=== PATIENT | female | born 1965 | race African-American/Black ===

== ENCOUNTER 2018-10-08 10:38 | Inpatient (IN) | payer OTHER ==
[2018-10-08] MEDS ORDERED: LIDOCAINE HCL/PF 2% SDV 5ML VIAL ONE (12:50)
[2018-10-08] MEDS ORDERED: PROPOFOL 20 ML ONE ×17 (12:50→15:35)
[2018-10-08] MEDS ORDERED: fentaNYL CITRATE 250 MCG/5 ML VIAL ONE ×2 (12:50)
[2018-10-08] MEDS ORDERED: MIDAZOLAM HCL 2 MG/2 ML SINGLE DOSE VIAL ONE ×2 (12:51)
[2018-10-08] MEDS ORDERED: ROCURONIUM BROMIDE 50 MG/5 ML VIAL ONE (12:51)
[2018-10-08] MEDS ORDERED: SUCCINYLCHOLINE CHLORIDE 200 MG/10 ML VIAL ONE (12:51)
--- NOTE | 2018-10-08 13:31 | PN ---
Progress Note (short form) - Note Progress Note: 52F s/p C5-C6 discectomy; C5, C6 partial corpectomies; C5-C6 anterior cervical decompression and instrumented fusion POD #0. -Admit to ICU x 24 hrs. for airway observation; OK to discharge home or downgrade to floor 10/09/2017 if airway stable. -Maintain head of bed 45-60 degrees. 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 -DVT PPx: -Mechanical only: MERVAT's, SCD's. -Post-op Ancef x 2 doses. -f/u AM labs. -Incentive spirometry. -PT/OT/Rehab, OOB. -WBAT B/L UE & LE. -d/c Cheney catheter at midnight; f/u TOV (8 hours max). -Keep dressing clean & dry. -No heavy lifting, bending or twisting. -Advance diet as tolerated. -B/L UE & LE NV checks. -Care per ICU & primary medical hospitalist teams. -Discharge planning: ok to discharge home 10/09/2017 if airway stable and pain well controlled; f/u [facility] [place] office Monday10/19/2017; call for appointment; . Devin Resendez MD (Orthopaedic Surgery).
[2018-10-08] MEDS ORDERED: ceFAZolin 2 GRAM PREMIX BAG IVPB ONE (13:35)
[2018-10-08] MEDS ORDERED: ceFAZolin SODIUM 1 GM VIAL ONE (13:52)
[2018-10-08] MEDS ORDERED: DEXAMETHASONE SOD PHOSPHATE 4 MG/1 ML VIAL ONE (14:31)
[2018-10-08] MEDS ORDERED: THROMBIN (BOVINE) 5,000 UNIT VIAL TP ONE (14:52)
--- NOTE | 2018-10-08 16:34 | OP ---
Operative Note - Note: Operative Date: 10/08/18 Pre-Operative Diagnosis: 1. C5-C6 intervertebral disc disorder. 2. Cervical radiculopathy. 3. Cervical myelopathy with neurogenic claudication. 4. Kyphosis Operation: 1. C5-C6 discectomy. 2. C5, C6 partial corpectomies. 3. C5-C6 anterior arthrodesis. 4. C5-C6 anterior instrumentation. 5. Bone autograft. 6. Bone allograft. 7. Intra-operative biplanar fluoroscopy. 8. Intra- operative neural monitoring Implants: Cage: Size #10, RTI Fortilink. Plate: 16mm Precision Spine Slimplicity Plate. 4 x 12mm screws Post-Operative Diagnosis: Same as Pre-op Surgeon: Devin Resendez Photography Spotter: Rafael Resendez Anesthesiologist/TRUCK SHOP SUPERVISOR: Burke Luke Anesthesia: General Specimens Removed: C5-C6 disc Estimated Blood Loss (mls): 25 Fluid Volume Replaced (mls): 1,000 Operative Report Dictated: Yes
[2018-10-08] MEDS ORDERED: ONDANSETRON 4 MG/2 ML VIAL IVPUSH PRN (16:35)
[2018-10-08] MEDS ORDERED: oxyCODONE HCL 5 MG TABLET PO PRN ×2 (16:35)
[2018-10-08] MEDS ORDERED: LACTATED RINGERS SOLUTION 1,000 ML IV SCH ×2 (16:45→17:00)
[2018-10-08] MEDS ORDERED: ACETAMINOPHEN INJECTION 100 ML IVPB ONE (17:08)
[2018-10-08] MEDS ORDERED: HYDROmorphone *PCA* 10MG/50ML DISP.SYRIN PCA ONE (17:09)
[2018-10-08] MEDS: HYDROmorphone *PCA* 10MG/50ML DISP.SYRIN PCA SCH (17:30)
[2018-10-08] MEDS: ACETAMINOPHEN 1000 MG/100 ML VIAL (NON FORMULARY) IVPB SCH (17:35)
--- NOTE | 2018-10-08 17:53 | CONSULT ---
Consult Consult Specialty:: CCM Referred by:: Dr. Resendez Reason for Consultation:: Airway watch - History of Present Illness Chief Complaint: s/p spinal surgery History of Present Illness: 52F with history of HTN, HLD, DM, C5-C6 intervertebral disc disorder, Cervical radiculopathy, Cervical myelopathy with neurogenic claudication, Kyphosis POD#0 s/p C5-C6 discectomy, C5, C6 partial corpectomies, C5-C6 anterior arthrodesis , C5-C6 anterior instrumentation, Bone autograft, Bone allograft, Intra- operative biplanar fluoroscopy, and Intra-operative neural monitoring. Procedure was without complications. Patient presents to the ICU for postoperative airway watch due to extent of surgery. Patient was lethargic in the PACU during evaluation so review of symptoms could not be done. - History Source History Provided By: Medical Record - Past Medical History Cardio/Vascular: Yes: HTN, Hyperlipdemia ...LMP Comment: 2014 Musculoskeletal: Yes: Other (chronic cervical back pain) Endocrine: Yes: Diabetes Mellitus - Alcohol/Substance Use Hx Alcohol Use: No - Smoking History Smoking history: Never smoked Home Medications - Allergies Allergies/Adverse Reactions: Allergies Allergy/AdvReac Type Severity Reaction Status Date / Time lisinopril Allergy Severe Swelling Verified 10/04/18 08:44 - Home Medications Home Medications: Ambulatory Orders Atorvastatin Ca [Lipitor] 20 mg PO DAILY 10/04/18 Losartan Potassium 100 mg PO DAILY 10/04/18 Metformin HCl [Metformin HCl ER] 500 mg PO BID 10/04/18 Family Disease History - Family Disease History Family History: Unable to Obtain Review of Systems Unable to obtain ROS, reason: lethargic - Review of Systems Gastrointestinal: reports: Nausea Physical Exam Vital Signs: Vital Signs Temperature 98.7 F 10/08/18 11:48 Pulse Rate 67 10/08/18 11:48 Respiratory Rate 20 10/08/18 11:48 Blood Pressure 128/83 10/08/18 11:48 O2 Sat by Pulse Oximetry (%) 99 10/08/18 11:48 Constitutional: Yes: No Distress, Other (lethargic) Eyes: Yes: Conjunctiva Clear, EOM Intact, PERRL HENT: Yes: Atraumatic, Normocephalic Neck: Yes: Supple, Trachea Midline Cardiovascular: Yes: Regular Rate and Rhythm Respiratory: Yes: Regular, CTA Bilaterally Gastrointestinal: Yes: Normal Bowel Sounds, Soft. No: Tenderness Edema: No Wound/Incision: Yes: Clean/Dry Neurological: Yes: Cran Nerves II-XII Intact, Other (able to move all extremities) ...Motor Strength: WNL Assessment/Plan 52F with history of HTN, HLD, DM, C5-C6 intervertebral disc disorder, Cervical radiculopathy, Cervical myelopathy with neurogenic claudication, Kyphosis POD#0 s/p C5-C6 discectomy, C5, C6 partial corpectomies, C5-C6 anterior arthrodesis , C5-C6 anterior instrumentation, Bone autograft, Bone allograft, Intra- operative biplanar fluoroscopy, and Intra-operative neural monitoring. 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 Incentive spirometry. PT consult OOB as tolerated WBAT B/L UE & LE per spine surgery Keep dressing clean & dry No heavy lifting, bending or twisting Advance diet as tolerated B/L UE & LE NV checks Case discussed with attending Dr. Toscano aware
[2018-10-08] MEDS ORDERED: LOSARTAN POTASSIUM 50 MG TABLET (FP) PO ONE (20:15)
[2018-10-08] MEDS ORDERED: ceFAZolin 2 GRAM PREMIX BAG IVPB SCH (21:00)
--- NOTE | 2018-10-08 21:00 | OP ---
DATE OF OPERATION: 10/08/2018 SURGEON: Devin Resendez MD VICE PRESIDENT BIOSTATISTICS: Rafael Resendez MD PREOPERATIVE DIAGNOSIS: 1. C5-C6 intervertebral disk disorder with associated A. Myelopathy. B. Radiculopathy. 2. Cervical spinal stenosis with neurogenic claudication. 3. Cervical kyphosis. 4. Segmental instability. 5. Disk osteophyte complex C5-C6. POSTOPERATIVE DIAGNOSIS: 1. C5-C6 intervertebral disk disorder with associated A. Myelopathy. B. Radiculopathy. 2. Cervical spinal stenosis with neurogenic claudication. 3. Cervical kyphosis. 4. Segmental instability. 5. Disk osteophyte complex C5-C6. SURGICAL PROCEDURE: 1. C5-C6 discectomy. 2. C5, C6 partial corpectomies. 3. C5-C6 anterior arthrodesis. 4. Insertion of biomechanical device C5-C6. 5. C5-C6 anterior instrumentation. 6. Bone autograft. 7. Bone allograft. 8. Intraoperative biplanar fluoroscopy. 9. Intraoperative neural monitoring. ANESTHESIOLOGIST: Burke Luke MD ANESTHESIA: General endotracheal tube anesthesia. POSITION: Supine. INCISION: Right oblique anterior at level of cricothyroid interval. IMPLANTS: Cage size # 10 RTI Fortilink. Plate: 16-mm Precision Spine Slimplicity plate. Screws 4 x 12 mm. ESTIMATED BLOOD LOSS: 25cc. INTRAVENOUS FLUID: Crystalloid, 1L. SPECIMENS: C5-C6 disc. DRAINS: None. COMPLICATIONS: None. URINE OUTPUT: See anesthesia record. BACTERIOLOGY: None. CLOSURE: 2-0 Vicryl and 3-0 Biosyn absorbable suture. INDICATIONS: The patient is a 52-year-old female who was indicated for anterior cervical decompression and instrumented fusion to prevent the progression of already worsening neurological decline. The patient was identified in the holding area by her arm band. A long discussion was held with the patient regarding the risks, benefits, and alternatives of the above-named procedure. The risks include, but are not limited to: Pain, bleeding, infection, damage to surrounding structures (including nerves, blood vessels, skin, ligaments, tendons, and bone), dysphagia, dysphonia, nerve palsy, wound complications, pseudarthrosis, failure of fusion, failure of hardware/implants/reduction, need for further surgery, blood clots, myocardial infarction, pulmonary embolism, cerebrovascular event, anesthesia complications, neurological injury, loss of function, and . Benefits as mentioned above. Alternatives include no surgery. All questions were answered. The patient understood and agreed to the procedure. Informed consent was obtained, witnessed, and verified. The patient was taken to the operating room after being seen by the anesthesia and nursing staff. PROCEDURE: The patient was brought into the operating room, placed on the OR table and secured with a safety strap. Consent and the operative site was again verified with the patient and nursing and anesthesia staff. Anesthesia was then administered without complications including antibiotics and TXA. A time-out was then done led by , the attending surgeon. The patient was positioned in the supine position with arms tucked and placed under gentle traction using tape over her shoulders. All bony prominences were very well padded. A bump was placed beneath the scapulae to facilitate extension of the patients neck. The cricothyroid interval was palpated, and a deep neck crease in the lines of Lenin at this level was targeted for incision. A C-arm fluoroscopy unit was positioned perpendicularly to the table and maintained at the level of the head, except when needed. Intra-operative neural monitoring revealed no change between pre- and post- positional SSEP & MEP baseline readings. The operative site was then prepped and draped in the standard sterile fashion using betadine prep and scrub, wiped off with alcohol, and Duraprep applied. Pre-operative imaging was available for intra-operative evaluation. Time-out was again done, and the case began. An oblique anterior incision was made on the right side of the patients neck in the lines of Lenin in standard fashion. Dissection was carried through the investing layer of fascia and finger palpation was used to create a plane lateral to the strap muscles between the carotid sheath and the viscera. Next, the esophagus and trachea were visualized as was the carotid sheath. Hand-held retractors were used to retract these structures safely out of the way, allowing direct access to the anterior cervical spine. The prevertebral fascia overlying the anterior cervical spine was then split using peanut swabs. An 18-gauge spinal needle was bent and used to localize the C5-C6 disc space under fluoroscopy. This helped us target the indicated surgical level. Next, the medial borders of the Longus Coli musculature were gently released over the anterolateral borders of the vertebral bodies and disc spaces using monopolar electrocautery. A self-retaining retractor system was used with the teeth of the blades retracting the belly of the longus coli muscles, and with the retractors themselves safely retracting the carotid sheath laterally and viscera medially. A 12mm Browning pin was then placed into the center of the vertebral bodies of C5 and C6. The Browning pin placement was confirmed via fluorscopy. A Browning pin distractor system was applied with no distraction at this stage. Additionally, the distractor barrels served as superior and inferior soft tissue retractors. The microscope was then introduced. The anterior osteophyte overlying the C5- C6 interspace was resected using a rongeur. Using monopolar electrocautery, the annulus of the C5-C6 disc was incised. The disc was morselized using a curette and excised using a pituitary rongeur. Next, a 40mm rough salo-tipped navjot was used to perform partial corpectomies of the caudal C5 vertebral body and the cephalad C6 vertebral body. The resection of most remaining bone, and the posterior longitudinal ligament (PLL) , was achieved utilizing Kerrison rongeur upcuts. A small, angled, ball-tipped probe was utilized to ensure that all PLL complex was free from adhesion to the theca prior to excision. There was no evidence of OPLL. The ball-tipped probe was also used to ensure that the bilateral C5-C6 neuroforaminae were patent. Our decompression of the cervical spine was successfully achieved. At this point, gentle distraction was applied to the Browning pin distractor. Next, trial implants were placed into the defect space and a size 10 RTI Fortilink cage was then selected to fit the distracted space. The cage was filled with a combination of autologous bone shavings and demineralized bone matrix putty allograft. The cage was then gently tapped into position. This completed the anterior arthrodesis. Browning pin distraction was released, allowing ligamentotaxis to provide a snug interference fit of the cage. This was ensured by using a cage-mejia. A 16- mm Precision Spine Slimplicity plate was utilized with 2 proximal and 2 distal screws measuring 12 mm to provide solid fixation. This, too, was demonstrated with a plate-mejia once all instrumentation was satisfactorily seated. The screws were then locked using the plate-screw locking mechanism. Fluoroscopic images in the AP and lateral plane showed implants to be in good position and with good overall alignment of the cervical spine. Copious irrigation was performed, hemostasis was assured, and the wound was closed primarily using 2-0 Vicryl and 3-0 Biosyn sutures. A sterile compressive dressing was applied. Sponge and needle counts were correct at the end of the case, and I, the attending surgeon, was present and scrubbed throughout the case. The patient was then extubated by the anesthesia staff without incident or complications and was then transferred to the recovery room in stable condition having tolerated the procedure well. OVERALL COMMENTS: Large amount of anterior osteophyte at C5-C6. Intraoperative improvement in both MEP and SSEP signaling following the anterior spinal cord decompression. Overall, case went very well. MD HARRY Delgado/[id number] MTDD
[2018-10-08] MEDS: CEFAZOLIN 2 GM/D5W 2 GM/50 ML ML IVPB SCH (21:57)
[2018-10-08] MEDS: BENZOCAINE/MENTH/CETYLPYRD CL 1 EACH LOZENGE MM PRN (22:00)
[2018-10-09] MEDS: ACETAMINOPHEN 1000 MG/100 ML VIAL (NON FORMULARY) IVPB SCH ×2 (00:06→08:59)
[2018-10-09] MEDS: diphenhydrAMINE HCL 25 MG CAPSULE (FP) PO PRN ×2 (00:17→10:58)
[2018-10-09] MEDS ORDERED: PT OWN MED DRAWER 7, Y5N ONE ×4 (04:56→21:16)
[2018-10-09] MEDS: CEFAZOLIN 2 GM/D5W 2 GM/50 ML ML IVPB SCH (05:41)
[2018-10-09 05:51] LABS: HEMATOCRIT 35.9 % (32.4-45.2); HEMOGLOBIN 11.7 GM/dL (10.7-15.3); MCH 29.2 pg (25.7-33.7); MCHC 32.6 g/dl (32.0-36.0); MEAN CELL VOLUME 89.6 fl (80-96); MEAN PLT VOLUME 8.3 fl (7.5-11.1); PLATELET COUNT 277 K/MM3 (134-434); RDW 13.4 % (11.6-15.6); WHITE BLOOD COUNT 10.4 K/mm3 (4.0-10.0)
[2018-10-09 06:18] LABS: ANION GAP 8 MMOL/L (8-16); BLOOD UREA NITROGEN 10 mg/dL (7-18); CALCIUM 8.9 mg/dL (8.5-10.1); CHLORIDE 106 mmol/L (98-107); CO2 27 mmol/L (21-32); GLUCOSE,RANDOM 134 mg/dL (74-106); POTASSIUM 4.1 mmol/L (3.5-5.1); SODIUM 141 mmol/L (136-145)
--- NOTE | 2018-10-09 07:02 | PN ---
Physical Exam: SUBJECTIVE: Patient seen and examined. Reports pain moderately well controlled. Endorses diffuse itching w/ dilaudid despite benadryl use. Denies N/V. Endorses flatus denies BM. OBJECTIVE: Vital Signs Period Temp Pulse Resp BP Sys/Cabello Pulse Ox Last 24 Hr 98.4 F-98.9 F 67-89 10-21 16-157/76-100 99-100 GENERAL: Awake, alert, and fully oriented, in no acute distress HEAD: No signs of trauma, normocephalic, atraumatic EYES: PERRLA, EOMI, sclera anicteric, conjunctiva clear ENT: Hearing grossly normal, nares patent, oropharynx clear without exudates. Moist mucosa NECK: Supple, post-operative dressing in place LUNGS: No distress, speaks full sentences, clear to auscultation bilaterally HEART: Regular rate and rhythm, normal S1 and S2, no murmurs appreciated, peripheral pulses normal and equal bilaterally ABDOMEN: Soft, nontender, normoactive bowel sounds. No guarding, no rebound EXTREMITIES : Normal inspection, Normal range of motion, no edema. No clubbing or cyanosis NEUROLOGICAL: Cranial nerves II through XII grossly intact. Normal speech, no focal sensorimotor deficits SKIN: Warm, Dry ASSESSMENT/PLAN: The pt is a 52F s/p C5-C6 discectomy; C5, C6 partial corpectomies; C5-C6 anterior cervical decompression and instrumented fusion on 10/08/2018 w/ Dr. Resendez. 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 -WBAT B/L UE & LE. -No heavy lifting, bending or twisting Dispo -Patient no longer requires ICU level of care, plan to transfer to the floor today -Discharge planning: ok to discharge home 10/09/2017 if airway stable and pain well controlled; f/u [facility] [place] office Monday10/19/2017; call for appointment; . Visit type - Emergency Visit Emergency Visit: Yes ED Registration Date: 10/08/18 Care time: The patient presented to the Emergency Department on the above date and was hospitalized for further evaluation of their emergent condition. - New Patient This patient is new to me today: Yes Date on this admission: 10/09/18 - Critical Care Critical Care patient: Yes Total Critical Care Time (in minutes): 35 Critical Care Statement: The care of this patient involved high complexity decision making to prevent further life threatening deterioration of the patient 's condition and/or to evaluate & treat vital organ system(s) failure or risk of failure.
[2018-10-09] MEDS ORDERED: LOSARTAN POTASSIUM 50 MG TABLET (FP) PO SCH (10:00)
[2018-10-09] MEDS: traMADol HCL 50 MG TABLET PO PRN ×2 (10:58→17:27)
--- NOTE | 2018-10-09 11:53 | PN ---
Teaching Attending Note Name of Resident: Aashish Desir ATTENDING PHYSICIAN STATEMENT I saw and evaluated the patient. I reviewed the resident's note and discussed the case with the resident. I agree with the resident's findings and plan as documented. SUBJECTIVE: Pt seen and examined in the ICU. Pain relatively controlled. Some upper lip swelling this AM but without shortness of breath. Some dysphagia from throat discomfort. OBJECTIVE: Vital Signs Period Temp Pulse Resp BP Sys/Cabello Pulse Ox Last 24 Hr 98.1 F-98.9 F 66-106 10-21 16-157/76-100 100-100 Intake & Output 10/06/18 10/07/18 10/08/18 10/09/18 23:59 23:59 23:59 23:59 Intake Total 1350 1900 Output Total 1975 800 Balance -625 1100 Weight 79.651 kg Gen: NAD at rest Heart: RRR Lung: decreased breath sounds at the bases Abd: soft, nontender Ext: no edema CBC, BMP 10/09/18 05:15 10/09/18 05:15 Active Medications Atorvastatin Calcium (Lipitor -) 20 mg PO HS [facility]UNA Benzocaine/Menthol (Cepacol Lozenge -) 1 each MM PRN PRN PRN Reason: SORE THROAT Last Admin: 10/08/18 22:00 Dose: 1 each Diphenhydramine HCl (Benadryl -) 50 mg PO Q6H PRN PRN Reason: FOR ITCHING Last Admin: 10/09/18 10:58 Dose: 50 mg Fentanyl (Sublimaze Injection -) 50 mcg IVPUSH [id number] PRN PRN Reason: PAIN-PACU ORDER X 4 DOSES ONLY Last Admin: 10/08/18 17:10 Dose: 50 mcg Hydromorphone HCl (Dilaudid Seed Laboratory Assistant -) 0 mg SHUTTLER CAR SHUTTLER CAR [facility]; Protocol Stop: 10/15/18 16:50 Last Admin: 10/08/18 17:30 Dose: 10 mg Lactated Ringer's (Lactated Ringers Solution) 1,000 mls @ 125 mls/hr IV ASDIR [facility] Last Admin: 10/08/18 16:45 Dose: 125 mls Losartan Potassium (Cozaar -) 100 mg PO DAILY [facility] Last Admin: 10/09/18 10:08 Dose: 100 mg Metformin HCl (Glucophage Xr -) 500 mg PO BIDAC [facility] Last Admin: 10/09/18 07:12 Dose: 500 mg Ondansetron HCl (Zofran Injection) 4 mg IVPUSH Q6H PRN PRN Reason: NAUSEA AND/OR VOMITING Last Admin: 10/08/18 17:15 Dose: 4 mg Oxycodone HCl (Roxicodone -) 5 mg PO Q4H PRN PRN Reason: PAIN LEVEL 6-10 Oxycodone HCl (Roxicodone -) 10 mg PO Q4H PRN PRN Reason: PAIN LEVEL 7 - 10 Tramadol HCl (Ultram -) 50 mg PO Q6H PRN PRN Reason: PAIN LEVEL 4 - 6 Last Admin: 10/09/18 10:58 Dose: 50 mg ASSESSMENT AND PLAN: Cervical Radiculopathy/Myelopathy with Neurogenic Claudication s/p C5-C6 Discectomy/Anterior Instrumentation HTN Hyperlipidemia DM Angioedema from ?Opiates - start benadryl - decadron - pain control - incentive spirometry - bowel regimen - jarvis d/c'd - OOB - PO as tolerated - DVT prophylaxis - can monitor on floor
[2018-10-09] MEDS ORDERED: hydrOXYzine HCL 25 MG TABLET (FP) PO ONE (11:56)
[2018-10-09] MEDS: BENZOCAINE/MENTH/CETYLPYRD CL 1 EACH LOZENGE MM PRN ×3 (14:37→22:10)
--- NOTE | 2018-10-09 14:43 | PN ---
Progress Note (short form) - Note Progress Note: Anesthesia POD#1 S/P ACDF under GA with MATCHER vss,lip swelling noticed,no injury,pain is under control. Dilaudid MATCHER is discontinued. No nausea/vomiting. Amanda Martins MD.
--- NOTE | 2018-10-09 17:55 | PN ---
Progress Note, Physician Chief Complaint: pt reports upper lip swelling since this morning. There has been no progression of symptoms. She remains stable for transfer to step down floor. History of Present Illness: POD #1 s/p C5-6 discectomy, C5-6 partial corpectomies, C5-6 anterior athrodesis - Current Medication List Current Medications: Active Medications Acetaminophen (Tylenol -) 650 mg PO Q6H PRN PRN Reason: PAIN Atorvastatin Calcium (Lipitor -) 20 mg PO HS [facility] Benzocaine/Menthol (Cepacol Lozenge -) 1 each MM PRN PRN PRN Reason: SORE THROAT Last Admin: 10/09/18 17:32 Dose: 1 each Diphenhydramine HCl (Benadryl -) 50 mg PO Q6H PRN PRN Reason: FOR ITCHING Last Admin: 10/09/18 10:58 Dose: 50 mg Losartan Potassium (Cozaar -) 100 mg PO DAILY [facility] Last Admin: 10/09/18 10:08 Dose: 100 mg Metformin HCl (Glucophage Xr -) 500 mg PO BIDAC [facility] Last Admin: 10/09/18 17:21 Dose: 500 mg Ondansetron HCl (Zofran Injection) 4 mg IVPUSH Q6H PRN PRN Reason: NAUSEA AND/OR VOMITING Last Admin: 10/08/18 17:15 Dose: 4 mg Oxycodone HCl (Roxicodone -) 5 mg PO Q4H PRN PRN Reason: PAIN LEVEL 6-10 Oxycodone HCl (Roxicodone -) 10 mg PO Q4H PRN PRN Reason: PAIN LEVEL 7 - 10 Tramadol HCl (Ultram -) 50 mg PO Q6H PRN PRN Reason: PAIN LEVEL 4 - 6 Last Admin: 10/09/18 17:27 Dose: 50 mg - Objective Vital Signs: Vital Signs Temperature 98.0 F 10/09/18 14:00 Pulse Rate 74 10/09/18 16:00 Respiratory Rate 18 10/09/18 16:00 Blood Pressure 131/76 10/09/18 16:00 O2 Sat by Pulse Oximetry (%) 100 10/09/18 09:00 Constitutional: Yes: Well Nourished, No Distress, Calm Eyes: Yes: WNL, Conjunctiva Clear, EOM Intact, PERRL HENT: Yes: Atraumatic, Normocephalic Neck: Yes: Supple, Trachea Midline, Tenderness (right sided, clean dry dressing) Cardiovascular: Yes: Regular Rate and Rhythm Respiratory: Yes: Regular, CTA Bilaterally Gastrointestinal: Yes: Normal Bowel Sounds, Soft ...Rectal Exam: Yes: Deferred Extremities: Yes: WNL Edema: No Peripheral Pulses WNL: Yes Peripheral Pulses: Left Radial: 2+, Right Radial: 2+, Left Doralis Pedis: 2+, Right Dorsalis Pedis: 2+ Integumentary: Yes: WNL Wound/Incision: Yes: Clean/Dry Neurological: Yes: Oriented ...Motor Strength: LUE, LLE, RUE, RLE Psychiatric: Yes: Alert, Oriented Labs: CBC, BMP 10/09/18 05:15 10/09/18 05:15 Problem List - Problems (1) S/P discectomy Assessment/Plan: OOB to chair Ambulate as tolerated Continue with PT Code(s): Z98.890 - OTHER SPECIFIED POSTPROCEDURAL STATES (2) Pain Assessment/Plan: Tylenol and tramadol for pain control Pt with upper lip swelling, avoid excessive oxycodone use Code(s): R52 - PAIN, UNSPECIFIED (3) HTN (hypertension) Assessment/Plan: losartan 100mg daily cardiac diet Code(s): I10 - ESSENTIAL (PRIMARY) HYPERTENSION (4) Diabetes mellitus type 2 in obese Assessment/Plan: Metformin 500mg BID diabetic diet progress diet as tolerated due to c/o mild dysphagia post-op Code(s): E11.69 - TYPE 2 DIABETES MELLITUS WITH OTHER SPECIFIED COMPLICATION; E66.9 - OBESITY, UNSPECIFIED (5) Hyperlipidemia Assessment/Plan: lipitor 20mg qhs Code(s): E78.5 - HYPERLIPIDEMIA, UNSPECIFIED (6) Prophylactic measure Assessment/Plan: bowel regimen with senna and colace Code(s): Z29.9 - ENCOUNTER FOR PROPHYLACTIC MEASURES, UNSPECIFIED Impression/Plan Impression/Plan: DISPO: Home when stable Code: Full Benadryl and topical hydrocortisone PRN ithcing cephacol PRN sore throat Visit type - Emergency Visit Emergency Visit: No - New Patient This patient is new to me today: Yes Date on this admission: 10/09/18 - Critical Care Critical Care patient: Yes Total Critical Care Time (in minutes): 30 Critical Care Statement: The care of this patient involved high complexity decision making to prevent further life threatening deterioration of the patient 's condition and/or to evaluate & treat vital organ system(s) failure or risk of failure. - Discharge Referral Referred to [facility] No
--- NOTE | 2018-10-09 18:31 | PN ---
Progress Note (short form) - Note Progress Note: 52F s/p C5-C6 discectomy; C5, C6 partial corpectomies; C5-C6 anterior cervical decompression and instrumented fusion POD #1. Pain well controlled. No acute events overnight. Pt. reports post-operative resolution of bilateral lower extremity radiculopathy (pain, numbness, and tingling) with near total upper extremity symptom resolution. Pt. denies overnight history of headache, chest pain, shortness of breath, nausea, vomiting, chills, & sweats. (+) Angioedema (lip swelling). (+) Voiding; (-) Flatus; (-) BM. All labs and vitals reviewed. PE: AAO x 3, NAD. C-Spine: Incision, dressing C/D/I. B/L UE & LE M: Intact, at least 3/5. B/L UE & LE S: C5-T1, L2-S1 2/2. 52F s/p C5-C6 discectomy; C5, C6 partial corpectomies; C5-C6 anterior cervical decompression and instrumented fusion POD #1. -Pain medication: NO NSAID's. -Maintain head of bed 45-60 degrees. -DVT PPx: -Mechanical only: MERVAT's, SCD's. -f/u AM labs. -Incentive spirometry. -PT/OT/Rehab, OOB. -WBAT B/L UE & LE. -Keep dressing clean & dry. -No heavy lifting, bending or twisting. -Advance diet as tolerated. -B/L UE & LE NV checks. -Care per ICU & primary medical hospitalist teams. -Discharge planning: f/u [facility] [place] office Monday10/19/2017; call for appointment; . Devin Resendez MD (Orthopaedic Surgery).
[2018-10-09] MEDS: HYDROCORTISONE 1% TOPICAL LOTION 118 ML BOTTLE TP SCH (21:56)
[2018-10-09] MEDS: DOCUSATE NA 100 MG/10 ML UNIT-DOSE CUPS PO SCH (21:56)
[2018-10-09] MEDS: ACETAMINOPHEN 325 MG TABLET (FP) PO PRN (21:57)
[2018-10-09] MEDS ORDERED: ATORVASTATIN CA 20 MG TABLET (FP) PO SCH (22:00)
[2018-10-09] MEDS ORDERED: SENNOSIDES 8.8 MG/5 ML BULK BOTTLE PO SCH (22:00)
[2018-10-09] MEDS: HYDROmorphone *PCA* 10MG/50ML DISP.SYRIN PCA SCH (23:19)
[2018-10-10] MEDS: traMADol HCL 50 MG TABLET PO PRN (00:24)
[2018-10-10] MEDS: BENZOCAINE/MENTH/CETYLPYRD CL 1 EACH LOZENGE MM PRN (00:26)
[2018-10-10] MEDS ORDERED: PT OWN MED DRAWER 7, Y5N ONE ×2 (04:20→07:08)
[2018-10-10] MEDS: ACETAMINOPHEN 325 MG TABLET (FP) PO PRN (05:59)
[2018-10-10 06:26] LABS: BASO % 0.3 % (0-2.0); EOS % 2.3 % (0-4.5); HEMATOCRIT 34.7 % (32.4-45.2); HEMOGLOBIN 11.1 GM/dL (10.7-15.3); LYMPH % 22.8 % (8-40); MCH 29.1 pg (25.7-33.7); MEAN CELL VOLUME 90.8 fl (80-96); MEAN PLT VOLUME 8.8 fl (7.5-11.1); MONO % 8.1 % (3.8-10.2); NEUT % 66.5 % (42.8-82.8); PLATELET COUNT 264 K/MM3 (134-434); RBC 3.82 M/mm3 (3.60-5.2); RDW 13.4 % (11.6-15.6); WHITE BLOOD COUNT 8.9 K/mm3 (4.0-10.0)
[2018-10-10 07:16] LABS: ALBUMIN 3.4 g/dl (3.4-5.0); ALK PHOS 77 U/L (45-117); ANION GAP 8 MMOL/L (8-16); BILIRUBIN,TOTAL 0.3 mg/dL (0.2-1); BLOOD UREA NITROGEN 14 mg/dL (7-18); CALCIUM 8.7 mg/dL (8.5-10.1); CHLORIDE 106 mmol/L (98-107); CO2 29 mmol/L (21-32); CREATININE 0.8 mg/dL (0.55-1.3); GLUCOSE,RANDOM 90 mg/dL (74-106); POTASSIUM 4.2 mmol/L (3.5-5.1); SGOT/AST 16 U/L (15-37); SGPT/ALT 19 U/L (13-61); SODIUM 143 mmol/L (136-145); TOT PROT 6.5 g/dl (6.4-8.2)
[2018-10-10] MEDS ORDERED: ONDANSETRON 4 MG/2 ML VIAL IVPUSH PRN ×2 (07:32→11:54)
[2018-10-10] MEDS ORDERED: diphenhydrAMINE HCL 25 MG CAPSULE (FP) PO PRN ×2 (07:32→11:54)
[2018-10-10] MEDS ORDERED: oxyCODONE HCL 5 MG TABLET PO PRN ×4 (07:32→11:54)
[2018-10-10] MEDS ORDERED: BENZOCAINE/MENTH/CETYLPYRD CL 1 EACH LOZENGE MM PRN ×2 (07:32→11:54)
[2018-10-10] MEDS ORDERED: traMADol HCL 50 MG TABLET PO PRN ×2 (07:32→11:54)
[2018-10-10] MEDS: DOCUSATE NA 100 MG/10 ML UNIT-DOSE CUPS PO SCH ×2 (09:26→22:56)
[2018-10-10] MEDS: HYDROCORTISONE 1% TOPICAL LOTION 118 ML BOTTLE TP SCH ×2 (09:27→22:58)
[2018-10-10] MEDS ORDERED: RANITIDINE HCL 150 MG TABLET (FP) PO SCH (10:00)
[2018-10-10] MEDS ORDERED: LOSARTAN POTASSIUM 50 MG TABLET (FP) PO SCH (10:00)
[2018-10-10] MEDS ORDERED: predniSONE 20 MG TABLET (UD) PO SCH (10:30)
--- NOTE | 2018-10-10 11:19 | PN ---
Physical Exam: SUBJECTIVE: Patient seen and examined at bedside. No overnight events. No new complaints. Pain well controlled. tolerating diet. Lip remains swollen but improved. Denies CP,SALES, SOB, palpitations, abdominal pain, nausea or vomiting. OBJECTIVE: Vital Signs Period Temp Pulse Resp BP Sys/Cabello Pulse Ox Last 24 Hr 98.0 F-98.7 F 72-96 10-18 118-149/75-89 96-96 GENERAL: Awake, alert, and fully oriented, in no acute distress HEAD: No signs of trauma, normocephalic, atraumatic EYES: PERRLA, EOMI, sclera anicteric, conjunctiva clear ENT: Hearing grossly normal, nares patent, oropharynx clear without exudates. Moist mucosa NECK: Supple, post-operative dressing in place LUNGS: No distress, speaks full sentences, clear to auscultation bilaterally HEART: Regular rate and rhythm, normal S1 and S2, no murmurs appreciated, peripheral pulses normal and equal bilaterally ABDOMEN: Soft, nontender, normoactive bowel sounds. No guarding, no rebound EXTREMITIES : Normal inspection, Normal range of motion, no edema. No clubbing or cyanosis NEUROLOGICAL: Cranial nerves II through XII grossly intact. Normal speech, no focal sensorimotor deficits SKIN: Warm, Dry Laboratory Results - last 24 hr 10/10/18 10/10/18 05:30 05:30 WBC 8.9 RBC 3.82 Hgb 11.1 Hct 34.7 MCV 90.8 MCH 29.1 MCHC 32.0 RDW 13.4 Plt Count 264 MPV 8.8 Absolute Neuts (auto) 5.9 Neutrophils % 66.5 Lymphocytes % 22.8 Monocytes % 8.1 Eosinophils % 2.3 Basophils % 0.3 Nucleated RBC % 0 Sodium 143 Potassium 4.2 Chloride 106 Carbon Dioxide 29 Anion Gap 8 BUN 14 Creatinine 0.8 Creat Clearance w eGFR > 60 Random Glucose 90 Calcium 8.7 Total Bilirubin 0.3 AST 16 ALT 19 Alkaline Phosphatase 77 Total Protein 6.5 Albumin 3.4 Active Medications Generic Name Dose Route Start Last Admin Trade Name Freq PRN Reason Stop Dose Admin Acetaminophen 650 mg 10/09/18 13:17 10/10/18 05:59 Tylenol - PO 650 mg Q6H PRN Administration PAIN Atorvastatin Calcium 20 mg 10/10/18 22:00 Lipitor - PO HS BRUNA Benzocaine/Menthol 1 each 10/10/18 07:32 Cepacol Lozenge - MM PRN PRN SORE THROAT Diphenhydramine HCl 50 mg 10/10/18 07:32 10/10/18 08:56 Benadryl - PO 50 mg Q6H PRN Administration FOR ITCHING Docusate Sodium 100 mg 10/09/18 22:00 10/10/18 09:26 Colace Liquid - PO 100 mg BID BRUNA Administration Hydrocortisone 1 applic 10/09/18 22:00 10/10/18 09:27 Hytone 1% Lotion - TP 1 applic BID [facility] Administration Metformin HCl 500 mg 10/10/18 16:30 Glucophage Xr - PO BIDAC BRUNA Ondansetron HCl 4 mg 10/10/18 07:32 Zofran Injection IVPUSH Q6H PRN NAUSEA AND/OR VOMITING Oxycodone HCl 5 mg 10/10/18 07:32 Roxicodone - PO Q4H PRN PAIN LEVEL 6-7 Oxycodone HCl 10 mg 10/10/18 07:32 Roxicodone - PO Q4H PRN PAIN LEVEL 7 - 10 Prednisone 40 mg 10/10/18 10:30 10/10/18 10:59 Deltasone - PO 40 mg DAILY BRUNA Administration Ranitidine HCl 150 mg 10/10/18 10:00 10/10/18 09:27 Zantac - PO 150 mg BID BRUNA Administration Senna 8.8 mg 10/09/18 22:00 10/09/18 21:57 Senna Oral Solution - PO 8.8 mg HS [facility] Administration Tramadol HCl 50 mg 10/10/18 07:32 Ultram - PO Q6H PRN PAIN LEVEL 4 - 6 ASSESSMENT/PLAN: The pt is a 52F s/p C5-C6 discectomy; C5, C6 partial corpectomies; C5-C6 anterior cervical decompression and instrumented fusion on 10/08/2018 w/ Dr. Resendez. POD #2 s/p C5-C6 discectomy, partial corpectomies, and anterior decompression/ instrumented fusion -Maintain head of bed 45-60 degrees -Keep dressing clean & dry -B/L UE & LE NV checks Neuro Pain well controlled. -Tylenol -Oxy 5 Q4h -Oxy 10 Q4h -Tramadol 50 Q6h -[employer] Puritis and angioedema -Benadryl PRN -stopped Cozaar -Prednisone 40mg daily Pulm PNA/atelectasis Ppx -Incentive Spirometer -Voiding spontaneously Heme DVT PPx -Mechanical only: MERVAT's, SCD's ID -s/p post-op Ancef x 2 doses MSK -PT/OT/Rehab, OOB. -WBAT B/L UE & LE. -No heavy lifting, bending or twisting Dispo -Patient no longer requires ICU level of care, plan to transfer to the floor today -Discharge planning: ok to discharge home 10/09/2017 if airway stable and pain well controlled; f/u [facility] [place] office Monday10/19/2017; call for appointment; . Visit type - Emergency Visit Emergency Visit: Yes ED Registration Date: 10/08/18 Care time: The patient presented to the Emergency Department on the above date and was hospitalized for further evaluation of their emergent condition. - New Patient This patient is new to me today: Yes Date on this admission: 10/10/18 - Critical Care Critical Care patient: Yes Total Critical Care Time (in minutes): 32 Critical Care Statement: The care of this patient involved high complexity decision making to prevent further life threatening deterioration of the patient 's condition and/or to evaluate & treat vital organ system(s) failure or risk of failure.
[2018-10-10] MEDS ORDERED: ACETAMINOPHEN 325 MG TABLET (FP) PO PRN (11:54)
--- NOTE | 2018-10-10 12:25 | PN ---
Teaching Attending Note Name of Resident: Javan Pereyra ATTENDING PHYSICIAN STATEMENT I saw and evaluated the patient. I reviewed the resident's note and discussed the case with the resident. I agree with the resident's findings and plan as documented. SUBJECTIVE: Pt seen and examined in the ICU. Still with upper lip swelling. Pain controlled. No shortness of breath or dysphagia. OBJECTIVE: Vital Signs Period Temp Pulse Resp BP Sys/Cabello Pulse Ox Last 24 Hr 98.0 F-98.7 F 72-89 10-18 118-149/75-89 96-96 Intake & Output 10/07/18 10/08/18 10/09/18 10/10/18 23:59 23:59 23:59 23:59 Intake Total 1350 2750 Output Total 1975 800 Balance -625 1950 Weight 79.651 kg 78.698 kg Gen: NAD at rest Heart: RRR Lung: decreased breath sounds at the bases Abd: soft, nontender Ext: no edema CBC, BMP 10/10/18 05:30 10/10/18 05:30 Active Medications Acetaminophen (Tylenol -) 650 mg PO Q6H PRN PRN Reason: PAIN Atorvastatin Calcium (Lipitor -) 20 mg PO HS BRUNA Benzocaine/Menthol (Cepacol Lozenge -) 1 each MM PRN PRN PRN Reason: SORE THROAT Diphenhydramine HCl (Benadryl -) 50 mg PO Q6H PRN PRN Reason: FOR ITCHING Docusate Sodium (Colace Liquid -) 100 mg PO BID BRUNA Hydrocortisone (Hytone 1% Lotion -) 1 applic TP BID [facility] Metformin HCl (Glucophage Xr -) 500 mg PO BID BRUNA Ondansetron HCl (Zofran Injection) 4 mg IVPUSH Q6H PRN PRN Reason: NAUSEA AND/OR VOMITING Oxycodone HCl (Roxicodone -) 5 mg PO Q4H PRN PRN Reason: PAIN LEVEL 6-7 Oxycodone HCl (Roxicodone -) 10 mg PO Q4H PRN PRN Reason: PAIN LEVEL 7 - 10 Prednisone (Deltasone -) 40 mg PO DAILY BRUNA Ranitidine HCl (Zantac -) 150 mg PO BID BRUNA Senna (Senna Oral Solution -) 8.8 mg PO HS BRUNA Tramadol HCl (Ultram -) 50 mg PO Q6H PRN PRN Reason: PAIN LEVEL 4 - 6 ASSESSMENT AND PLAN: Cervical Radiculopathy/Myelopathy with Neurogenic Claudication s/p C5-C6 Discectomy/Anterior Instrumentation HTN Hyperlipidemia DM Angioedema - continue antihistamines, steroids - pain control - incentive spirometry - bowel regimen - OOB, ambulate - PO as tolerated - DVT prophylaxis - can monitor on floor
--- NOTE | 2018-10-10 13:39 | PN ---
Teaching Attending Note Name of Resident: Martha Diaz ATTENDING PHYSICIAN STATEMENT I saw and evaluated the patient. I reviewed the resident's note and discussed the case with the resident. I agree with the resident's findings and plan as documented. SUBJECTIVE: swelling in lip. minimal pain in neck. nO fever or chills. no weakness. no wheezing , SOB , or difficulty swallowing OBJECTIVE: NAD HEENT: symmetric face, upper lip swelling. 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 LUE: shoulder shrug, biceps, triceps, hand tape edge machine operator 5/5. RLE: hip flexion 4/5 . knee flexion and extension , ankle dorsiflexion and plantar flexion 5/5 LLE: hip flexion, knee flexion and extension, ankle dorsiflexion and plantar flexion 5/5 ASSESSMENT AND PLAN: 52 y/o lady with h/o DM , HTN, and HLP who presented for C spine sx . 1- Cervical myelopathy s/p C5-6 discectomy and instrumentation . doing well - cont incentive spirometer - pain control with po meds - bowel regimen 2- Angioedema. likely due to losartan ( lisinopril caused angioedema in past ) - dc losartan - start norvasc for HTN - prednisone , H1, and H2 blockers for 1 week 3- DM : do not expect any contrast studies. cont metformin 4- DVT PX : SCDs . avoid heparin products per neuro sx
--- NOTE | 2018-10-10 15:10 | PATH ---
Surgical Pathology Report Patient Name: KAYE CULLEN [facility]. Rec. #: [id number] /Age/Gender: 1965 (Age: 52) / F Account: [id number] [facility] Taken: 10/08/2018 Received: 10/09/2018 Reported: 10/10/2018 Physicians: Devin Resendez M.D. Specimen(s) Received CERVICAL DISC Clinical History Radiculopathy, cervical region Final Diagnosis CERVICAL DISC, DISCECTOMY: BONE AND FIBROCARTILAGINOUS TISSUE WITH DEGENERATIVE CHANGE. Electronically Signed Melissa Escobedo M.D. Gross Description Received in formalin labeled "cervical disc," is a 2.0 x 1.3 x 0.3 cm aggregate of paz fragments of fibrocartilaginous tissue. The specimen is submitted in toto in one cassette. /10/09/201810/09/2018
[2018-10-10 15:18] VITALS: BMI 25.8
--- NOTE | 2018-10-10 16:07 | PN ---
Physical Exam: SUBJECTIVE: Patient seen and examined at bedside. This was my first encounter with the patient. According to her, lip swelling is improving, and denies any difficulty breathing or swallowing. She reports of minimal neck pain. She has no BM yet. Otherwise denies headache, dizziness, fever, chills, chest pain, palpitations, SOB, nausea, vomiting, abdominal pain, urinary symptoms. OBJECTIVE: Vital Signs Period Temp Pulse Resp BP Sys/Acbello Pulse Ox Last 24 Hr 98.0 F-99.5 F 72-98 10-17 118-149/75-89 96-96 GENERAL: The patient is awake, alert, and fully oriented, in no acute distress. HEAD: Normal with no signs of trauma. EYES: PERRLA, EOMI, sclera anicteric, conjunctiva clear. ENT: Ears normal, nares patent, oropharynx clear without exudates, moist mucous membranes. +swollen lip NECK: Soft, supple, surgical dressing intact and in place. LUNGS: Breath sounds equal, clear to auscultation bilaterally. HEART: Regular rate and rhythm, S1, S2 without murmur, rub or gallop. ABDOMEN: Soft, nontender, nondistended, normoactive bowel sounds. EXTREMITIES: 2+ pulses, warm, well-perfused, no edema. NEUROLOGICAL: Cranial nerves II through XII grossly intact. Normal speech, gait not observed. PSYCH: Normal mood, normal affect. SKIN: Warm, dry, normal turgor, no rashes or lesions noted Laboratory Results - last 24 hr 10/10/18 10/10/18 05:30 05:30 WBC 8.9 RBC 3.82 Hgb 11.1 Hct 34.7 MCV 90.8 MCH 29.1 MCHC 32.0 RDW 13.4 Plt Count 264 MPV 8.8 Absolute Neuts (auto) 5.9 Neutrophils % 66.5 Lymphocytes % 22.8 Monocytes % 8.1 Eosinophils % 2.3 Basophils % 0.3 Nucleated RBC % 0 Sodium 143 Potassium 4.2 Chloride 106 Carbon Dioxide 29 Anion Gap 8 BUN 14 Creatinine 0.8 Creat Clearance w eGFR > 60 Random Glucose 90 Calcium 8.7 Total Bilirubin 0.3 AST 16 ALT 19 Alkaline Phosphatase 77 Total Protein 6.5 Albumin 3.4 Active Medications Generic Name Dose Route Start Last Admin Trade Name Freq PRN Reason Stop Dose Admin Acetaminophen 650 mg 10/10/18 11:54 Tylenol - PO Q6H PRN PAIN Amlodipine Besylate 5 mg 10/11/18 10:00 Norvasc - PO DAILY [facility] Atorvastatin Calcium 20 mg 10/10/18 22:00 Lipitor - PO HS [facility] Benzocaine/Menthol 1 each 10/10/18 11:54 Cepacol Lozenge - MM PRN PRN SORE THROAT Diphenhydramine HCl 50 mg 10/10/18 14:45 Benadryl - PO Q8H [facility] Docusate Sodium 100 mg 10/10/18 22:00 Colace Liquid - PO BID [facility] Hydrocortisone 1 applic 10/10/18 22:00 Hytone 1% Lotion - TP BID [facility] Metformin HCl 500 mg 10/10/18 22:00 Glucophage Xr - PO BID [facility] Ondansetron HCl 4 mg 10/10/18 11:54 Zofran Injection IVPUSH Q6H PRN NAUSEA AND/OR VOMITING Oxycodone HCl 5 mg 10/10/18 11:54 Roxicodone - PO Q4H PRN PAIN LEVEL 6-7 Oxycodone HCl 10 mg 10/10/18 11:54 Roxicodone - PO Q4H PRN PAIN LEVEL 7 - 10 Prednisone 40 mg 10/11/18 10:00 Deltasone - PO DAILY [facility] Ranitidine HCl 150 mg 10/10/18 22:00 Zantac - PO BID [facility] Senna 8.8 mg 10/10/18 22:00 Senna Oral Solution - PO HS [facility] Tramadol HCl 50 mg 10/10/18 11:54 Ultram - PO Q6H PRN PAIN LEVEL 4 - 6 ASSESSMENT/PLAN: Patient is a 52 year old female with past medical history of HTN, HLD, and DM presented with C5-C6 intervertebral disc disorder, Cervical radiculopathy, Cervical myelopathy with neurogenic claudication, Kyphosis. #POD2 s/p C5-C6 discectomy, C5, C6 partial corpectomies, C5-C6 anterior arthrodesis, C5-C6 anterior instrumentation, Bone autograft, Bone allograft, Intra-operative biplanar fluoroscopy, and Intra-operative neural monitoring. -Continue PRN pain medications -Tylenol 650mg q6h -Oxycodone 5mg q4h and 10mg q4h -Tramadol 50mg q6h -Keep dressing clean and dry -Neuro checks -Incentive spirometry -PT/OT/Rehab, OOB. -WBAT B/L UE & LE. -No heavy lifting, bending or twisting #Angioedema probably 2/2 Losartan -Although patient has been on Losartan for long time, she has known allergy to Lisinopril presenting with angioedema -She is able to tolerate Oxycodone, so unlikely caused by dilaudid -Continue Benadryl 50mg q8, Prednisone 40mg daily, Zantac 150mg BID -Will complete regimen for 7 days. -Losartan discontinued #Hypertension -Losartan discontinued -Amlodipine 5 mg daily started. -Will continue to monitor BP #Hyperlipidemia -Continue home Lipitor 20mg Po HS #DM -Continue home Metformin 500mg BID -Will continue to monitor #FEN -Not on any standing fluids -electrolytes wnl, routine bmp monitoring -Diabetic diet #Prophylaxis -SCDs/TEDs -early ambulation #Disposition -full code -transfer to med-surg -Discharge planning: f/u [facility] [place] office Monday10/19/2017; call for appointment; . Visit type - Emergency Visit Emergency Visit: Yes ED Registration Date: 10/08/18 Care time: The patient presented to the Emergency Department on the above date and was hospitalized for further evaluation of their emergent condition. - New Patient This patient is new to me today: Yes Date on this admission: 10/10/18 - Critical Care Critical Care patient: No
[2018-10-10] MEDS: diphenhydrAMINE HCL 25 MG CAPSULE (FP) PO SCH ×2 (16:51→22:56)
--- NOTE | 2018-10-10 19:12 | PN ---
Progress Note (short form) - Note Progress Note: POD#2 Doing well Mild incisional pain Voice Normal Swallowing normal Wound Dry no swelling Neuro Symptomatically much improved ASSESS Most gratifying improvement all round PLAN Pain mx prn PT Mobilize FWBAT D/C planning home See in the office in 1 week Leave dressing
[2018-10-10] MEDS ORDERED: ATORVASTATIN CA 20 MG TABLET (FP) PO SCH (22:00)
[2018-10-10] MEDS: RANITIDINE HCL 150 MG TABLET (FP) PO SCH (22:56)
[2018-10-10] MEDS: SENNOSIDES 8.8 MG/5 ML BULK BOTTLE PO SCH (22:56)
[2018-10-10] MEDS: ATORVASTATIN CA 20 MG TABLET (FP) PO SCH (22:56)
[2018-10-11] MEDS: diphenhydrAMINE HCL 25 MG CAPSULE (FP) PO SCH ×3 (06:06→23:06)
[2018-10-11 06:57] LABS: HEMATOCRIT 36.1 % (32.4-45.2); HEMOGLOBIN 11.4 GM/dL (10.7-15.3); MCH 28.7 pg (25.7-33.7); MCHC 31.6 g/dl (32.0-36.0); MEAN CELL VOLUME 91.1 fl (80-96); MEAN PLT VOLUME 8.6 fl (7.5-11.1); PLATELET COUNT 286 K/MM3 (134-434); RBC 3.96 M/mm3 (3.60-5.2); RDW 13.6 % (11.6-15.6); WHITE BLOOD COUNT 9.9 K/mm3 (4.0-10.0)
[2018-10-11 07:29] LABS: ANION GAP 8 MMOL/L (8-16); BLOOD UREA NITROGEN 12 mg/dL (7-18); CALCIUM 8.9 mg/dL (8.5-10.1); CHLORIDE 105 mmol/L (98-107); CO2 28 mmol/L (21-32); CREATININE 0.7 mg/dL (0.55-1.3); GLUCOSE,RANDOM 90 mg/dL (74-106); MAGNESIUM 1.9 mg/dL (1.8-2.4); PHOSPHOROUS 3.3 mg/dL (2.5-4.9); SODIUM 140 mmol/L (136-145)
[2018-10-11] MEDS ORDERED: amLODIPine BESYLATE 2.5 MG TABLET (FP) PO SCH (10:00)
[2018-10-11] MEDS ORDERED: PT OWN MED DRAWER 7, Y5N ONE ×2 (10:24→18:44)
[2018-10-11] MEDS: predniSONE 20 MG TABLET (UD) PO SCH (10:25)
[2018-10-11] MEDS: amLODIPine BESYLATE 5 MG TABLET (FP) PO SCH (10:25)
[2018-10-11] MEDS: DOCUSATE NA 100 MG/10 ML UNIT-DOSE CUPS PO SCH ×2 (10:26→21:53)
[2018-10-11] MEDS: RANITIDINE HCL 150 MG TABLET (FP) PO SCH ×2 (10:26→21:54)
[2018-10-11] MEDS: HYDROCORTISONE 1% TOPICAL LOTION 118 ML BOTTLE TP SCH ×2 (10:30→21:57)
--- NOTE | 2018-10-11 12:30 | PN ---
Teaching Attending Note Name of Resident: Afia Brady ATTENDING PHYSICIAN STATEMENT I saw and evaluated the patient. I reviewed the resident's note and discussed the case with the resident. I agree with the resident's findings and plan as documented. SUBJECTIVE: No fever or chills . minimal neck pain. no dysphagia , no wheezing of SOB . no weakness, numbness or tingling. some painin neck with radiationt o R arm, as per her pre-op sx OBJECTIVE: NAD HEENT: symmetric face, upper lip with less swelling. uvula is normal with no edema . 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 LUE: shoulder shrug, biceps, triceps, hand radio control crane operator 5/5. RLE: hip flexion 4/5 . knee flexion and extension , ankle dorsiflexion and plantar flexion 5/5 LLE: hip flexion, knee flexion and extension, ankle dorsiflexion and plantar flexion 5/5 ASSESSMENT AND PLAN: 52 y/o lady with h/o DM , HTN, and HLP who presented for C spine sx . 1- Cervical myelopathy s/p C5-6 discectomy and instrumentation. doing well - cont incentive spirometer even after dc - not using her oxy or ultram. - will dc home on tylenol. if she needs extra pain control at home , she can call Dr. Resendez for instructions. for now avoid NSAIDS - leave dressing on neck until she follows with Dr. Resendez in 1 week - patient was ISTOPed and has no narcotic [place] in [place] or [place] before . Reference #: [id number] 2- Angioedema. likely due to losartan - patient instructed never to use any llisinopril or losartan or any of meds in their family - cont norvasc for HTN - cont prednisone( taper) , H1, and H2 blockers for total of 1 week ( 5 days left ) , to avoid relapse 3- DM : cont metformin dc home
[2018-10-11] MEDS ORDERED: methylPREDNISolone NA SUCC 40 MG/1 ML VIAL IVPUSH ONE (14:39)
--- NOTE | 2018-10-11 19:04 | PN ---
Physical Exam: SUBJECTIVE: Patient seen and examined at bedside this morning. No acute events overnight. Patient reported continuous itchiness all over her body, with improvement of lip swelling. Denies any difficulty swallowing or breathing. In the afternoon, patient developed hives on the right shoulder. IV Benadryl and IV Solu-medrol given. Has passed gas but no bowel movements yet. OBJECTIVE: Vital Signs Period Temp Pulse Resp BP Sys/Cabello Pulse Ox Last 24 Hr 98.1 F-98.5 F 76-82 18-20 120-160/67-91 97-97 GENERAL: The patient is awake, alert, and fully oriented, in no acute distress. HEAD: Normal with no signs of trauma. EYES: PERRLA, EOMI, sclera anicteric, conjunctiva clear. ENT: Ears normal, nares patent, oropharynx clear without exudates, moist mucous membranes. +swollen lip NECK: Soft, supple, surgical dressing intact and in place. LUNGS: Breath sounds equal, clear to auscultation bilaterally. HEART: Regular rate and rhythm, S1, S2 without murmur, rub or gallop. ABDOMEN: Soft, nontender, nondistended, normoactive bowel sounds. EXTREMITIES: 2+ pulses, warm, well-perfused, no edema. NEUROLOGICAL: Cranial nerves II through XII grossly intact. Normal speech, gait not observed. PSYCH: Normal mood, normal affect. SKIN: Warm, dry, normal turgor, no rashes or lesions noted Laboratory Results - last 24 hr 10/11/18 10/11/18 06:00 06:00 WBC 9.9 RBC 3.96 Hgb 11.4 Hct 36.1 MCV 91.1 MCH 28.7 MCHC 31.6 L RDW 13.6 Plt Count 286 MPV 8.6 Sodium 140 Potassium 4.0 Chloride 105 Carbon Dioxide 28 Anion Gap 8 BUN 12 Creatinine 0.7 Creat Clearance w eGFR > 60 Random Glucose 90 Calcium 8.9 Phosphorus 3.3 Magnesium 1.9 Active Medications Generic Name Dose Route Start Last Admin Trade Name Freq PRN Reason Stop Dose Admin Acetaminophen 650 mg 10/10/18 11:54 Tylenol - PO Q6H PRN PAIN Amlodipine Besylate 5 mg 10/11/18 10:00 10/11/18 10:25 Norvasc - PO 5 mg DAILY BRUNA Administration Atorvastatin Calcium 20 mg 10/10/18 22:00 10/10/18 22:56 Lipitor - PO 20 mg HS BRUNA Administration Benzocaine/Menthol 1 each 10/10/18 11:54 Cepacol Lozenge - MM PRN PRN SORE THROAT Diphenhydramine HCl 50 mg 10/10/18 14:45 10/11/18 14:37 Benadryl - PO 50 mg Q8H BRUNA Administration Docusate Sodium 100 mg 10/10/18 22:00 10/11/18 10:26 Colace Liquid - PO 100 mg BID BRUNA Administration Hydrocortisone 1 applic 10/10/18 22:00 10/11/18 10:30 Hytone 1% Lotion - TP 1 applic BID BRUNA Administration Metformin HCl 500 mg 10/10/18 22:00 10/11/18 10:26 Glucophage Xr - PO 500 mg BID BRUNA Administration Prednisone 40 mg 10/11/18 10:00 10/11/18 10:25 Deltasone - PO 40 mg DAILY BRUNA Administration Ranitidine HCl 150 mg 10/10/18 22:00 10/11/18 10:26 Zantac - PO 150 mg BID BRUNA Administration Senna 8.8 mg 10/10/18 22:00 10/10/18 22:56 Senna Oral Solution - PO 8.8 mg HS BRUNA Administration ASSESSMENT/PLAN: Patient is a 52 year old female with past medical history of HTN, HLD, and DM presented with C5-C6 intervertebral disc disorder, Cervical radiculopathy, Cervical myelopathy with neurogenic claudication, Kyphosis. #POD3 s/p C5-C6 discectomy, C5, C6 partial corpectomies, C5-C6 anterior arthrodesis, C5-C6 anterior instrumentation, Bone autograft, Bone allograft, Intra-operative biplanar fluoroscopy, and Intra-operative neural monitoring. -Continue PRN pain medications -Tylenol 650mg q6h PRN -Oxycodone discontinued -Tramadol discontinued -Keep dressing clean and dry -Neuro checks -Incentive spirometry -PT/OT/Rehab, OOB. -WBAT B/L UE & LE. -No heavy lifting, bending or twisting -No bowel movements yet. On colace and senna. #Angioedema probably 2/2 Losartan -Although patient has been on Losartan for long time, she has known allergy to Lisinopril presenting with angioedema -Will discontinue Tramadol and Oxycodone. -Continue Benadryl 50mg q8, Prednisone 40mg daily, Zantac 150mg BID -Losartan discontinued #Hypertension -Losartan discontinued -Amlodipine 5 mg daily started. -Will continue to monitor BP #Hyperlipidemia -Continue home Lipitor 20mg Po HS #DM -Continue home Metformin 500mg BID -Will continue to monitor #FEN -Not on any standing fluids -electrolytes wnl, routine bmp monitoring -Diabetic diet #Prophylaxis -SCDs/TEDs -early ambulation #Disposition -full code -transfer to med-surg -Discharge planning: f/u [facility] [place] office Monday10/19/2017; call for appointment; . Visit type - Emergency Visit Emergency Visit: Yes ED Registration Date: 10/08/18 Care time: The patient presented to the Emergency Department on the above date and was hospitalized for further evaluation of their emergent condition. - New Patient This patient is new to me today: No - Critical Care Critical Care patient: No
[2018-10-11] MEDS: ATORVASTATIN CA 20 MG TABLET (FP) PO SCH (21:54)
[2018-10-11] MEDS: SENNOSIDES 8.8 MG/5 ML BULK BOTTLE PO SCH (21:54)
[2018-10-12] MEDS: diphenhydrAMINE HCL 25 MG CAPSULE (FP) PO SCH (06:31)
[2018-10-12 07:55] LABS: HEMATOCRIT 36.6 % (32.4-45.2); HEMOGLOBIN 11.6 GM/dL (10.7-15.3); MCH 28.7 pg (25.7-33.7); MCHC 31.7 g/dl (32.0-36.0); MEAN CELL VOLUME 90.7 fl (80-96); PLATELET COUNT 286 K/MM3 (134-434); RBC 4.04 M/mm3 (3.60-5.2); RDW 13.3 % (11.6-15.6); WHITE BLOOD COUNT 12.5 K/mm3 (4.0-10.0)
[2018-10-12 08:19] LABS: ANION GAP 9 MMOL/L (8-16); BLOOD UREA NITROGEN 17 mg/dL (7-18); CALCIUM 9.1 mg/dL (8.5-10.1); CHLORIDE 106 mmol/L (98-107); CO2 25 mmol/L (21-32); CREATININE 0.8 mg/dL (0.55-1.3); GLUCOSE,RANDOM 92 mg/dL (74-106); POTASSIUM 4.2 mmol/L (3.5-5.1); SODIUM 140 mmol/L (136-145)
[2018-10-12] MEDS ORDERED: PT OWN MED DRAWER 7, Y5N ONE (09:12)
[2018-10-12] MEDS: amLODIPine BESYLATE 5 MG TABLET (FP) PO SCH (09:15)
[2018-10-12] MEDS: predniSONE 20 MG TABLET (UD) PO SCH (09:15)
[2018-10-12] MEDS: DOCUSATE NA 100 MG/10 ML UNIT-DOSE CUPS PO SCH (09:15)
[2018-10-12] MEDS: RANITIDINE HCL 150 MG TABLET (FP) PO SCH (09:15)
[2018-10-12] MEDS: HYDROCORTISONE 1% TOPICAL LOTION 118 ML BOTTLE TP SCH (09:17)
[2018-10-12 11:13] VITALS: BP 139/89; PULSE 77; TEMP 98.3
--- NOTE | 2018-10-12 17:56 | DS ---
Physical Exam: SUBJECTIVE: Patient seen and examined at bedside this morning. No acute events overnight. Lip swelling improved. Welts noted yesterday were still present, but has not gone worse, no other rash or lesions noted. Denies any difficulty swallowing or breathing. Reports itching has improved as well. OBJECTIVE: Vital Signs Period Temp Pulse Resp BP Sys/[place] Pulse Ox Last 24 Hr 98.1 F-98.3 F 77-81 18-20 127-139/81-89 97-100 PHYSICAL EXAM GENERAL: The patient is awake, alert, and fully oriented, in no acute distress. HEAD: Normal with no signs of trauma. EYES: PERRLA, EOMI, sclera anicteric, conjunctiva clear. ENT: Ears normal, nares patent, oropharynx clear without exudates, moist mucous membranes. +swollen lip, improved NECK: Soft, supple, surgical dressing intact and in place. LUNGS: Breath sounds equal, clear to auscultation bilaterally. HEART: Regular rate and rhythm, S1, S2 without murmur, rub or gallop. ABDOMEN: Soft, nontender, nondistended, normoactive bowel sounds. EXTREMITIES: 2+ pulses, warm, well-perfused, no edema. NEUROLOGICAL: Cranial nerves II through XII grossly intact. Normal speech, gait not observed. PSYCH: Normal mood, normal affect. SKIN: Warm, dry, normal turgor, no rashes or lesions noted LABS Laboratory Results - last 24 hr 10/12/18 10/12/18 06:30 06:30 WBC 12.5 H RBC 4.04 Hgb 11.6 Hct 36.6 MCV 90.7 MCH 28.7 MCHC 31.7 L RDW 13.3 Plt Count 286 MPV 10.0 D Sodium 140 Potassium 4.2 Chloride 106 Carbon Dioxide 25 Anion Gap 9 BUN 17 Creatinine 0.8 Creat Clearance w eGFR > 60 Random Glucose 92 Calcium 9.1 Phosphorus 4.0 Magnesium 2.0 HOSPITAL COURSE: Date of Admission:10/08/18 Date of Discharge: 10/12/18 Patient is a 52 year old female with past medical history of HTN, HLD, and DM presented with C5-C6 intervertebral disc disorder, Cervical radiculopathy, Cervical myelopathy with neurogenic claudication, Kyphosis. Patient underwent C5 -C6 discectomy, C5, C6 partial corpectomies, C5-C6 anterior arthrodesis, C5-C6 anterior instrumentation, Bone autograft, Bone allograft, Intra-operative biplanar fluoroscopy, and Intra-operative neural monitoring. Patient tolerated the procedure well, and has minimal neck pain. On POD1, patient developed lip swelling. Her Losartan was discontinued. She was started on Benadryl 50mg q8, Prednisone 40mg daily, Zantac 150mg BID to complete for 7 days, with prednisone tapered. Her Losartan was switched amlodipine 5mg. Patient was discharged with instructions to follow up with Dr. Resendez on 10/19/18. Minutes to complete discharge: 35 Discharge Summary Reason For Visit: RADICULOPATHY, CERVICAL REGION Condition: Improved - Instructions Diet, Activity, Other Instructions: Your visit You were admitted to the hospital because you had neck pain. You underwent cervical spinal surgery and tolerated the procedure well. During your recovery, you developed an allergic reaction. It might have been from Losartan. The Losartan was stopped and you were put on a regimen for the allergy. Please see medications below. do not take losartan or lisinopril or any similar medications in the future . report it as severe allergy Medications For blood pressure: 1. Amlodipine 5mg daily. Please STOP taking the Losartan. For pain: 1. Tylenol 650mg every 6 hours as needed for pain. do not exceed 4 g of tylenol a day For the allergy: 1. Benadryl 50mg every 8 hours for 5 days. 2. Zantac 150mg twice a day for 5 days. 3. Prednisone 30mg once a day for 2 days. (10/12-10/13) Then take 20mg daily for 2 days. (10/14-10/15) Then take 10mg daily for 2 days. (10/16-10/17) Care -Do not remove the bandage on your neck. Do not change it. -You will follow-up with Dr. Resendez on Monday (10/19), and he will check it himself. -The bandage is water resistant but try to keep the area dry. Follow-up -Please follow-up with Dr. Resendez at the [facility] office on Monday (10/19/18) at 9am. -Follow-up with your primary care doctor (Dr. Adwoa Dumont) within 1 week. Please call the office to confirm your appointment. Additional info -Call 911 or go to the ED if with any worsening pain that is not responsive to pain medication, fever, chills, unusual bleeding or drainage from the wound, increasing redness or swelling at wound sites, lip swelling, difficulty swallowing, headache, dizziness, nausea, vomiting, chest pain, shortness of breath, abdominal pain, or any new concerns noted. Referrals: Devin Resendez MD [Staff Physician] - 1 Week Disposition: HOME - Home Medications Comprehensive Discharge Medication List: Ambulatory Orders Atorvastatin Ca [Lipitor] 20 mg PO DAILY 10/04/18 Metformin HCl [Metformin HCl ER] 500 mg PO BID 10/04/18 Acetaminophen [Tylenol .Regular Strength -] 650 mg PO Q6H PRN #15 tablet Amlodipine Besylate [Norvasc -] 5 mg PO DAILY #30 tablet 10/11/18 Diphenhydramine HCl [Benadryl Capsule -] 50 mg PO Q8H #15 capsule 10/11/18 Prednisone See Taper PO DAILY #12 tablet 10/11/18 Ranitidine [Zantac -] 150 mg PO BID #10 tablet 10/11/18 This patient is new to me today: No Emergency Visit: Yes ED Registration Date: 10/08/18 Care time: The patient presented to the Emergency Department on the above date and was hospitalized for further evaluation of their emergent condition. Critical Care patient: No - Discharge Referral Referred to [facility] No
--- NOTE | 2018-10-12 20:12 | PN ---
Teaching Attending Note Name of Resident: Martha Diaz ATTENDING PHYSICIAN STATEMENT I saw and evaluated the patient. I reviewed the resident's note and discussed the case with the resident. I agree with the resident's findings and plan as documented. SUBJECTIVE: No fever or chills . pain is better OBJECTIVE: NAD HEENT: symmetric face, upper lip with no swelling . Cv: RRR Lungs: CTAB Ext: no edema Neuro: RUE: shoulder shrug 5/5, biceps, triceps, hand auto winder 4/5. LUE: shoulder shrug, biceps, triceps, hand auto winder 5/5. RLE: hip flexion 4/5 . knee flexion and extension , ankle dorsiflexion and plantar flexion 5/5 LLE: hip flexion, knee flexion and extension, ankle dorsiflexion and plantar flexion 5/5 skin : 2 erythematous raised areas ( 1cm indiameter ) on R lateral upper arm . ASSESSMENT AND PLAN: 52 y/o lady with h/o DM , HTN, and HLP who presented for C spine sx . 1- Cervical myelopathy s/p C5-6 discectomy and instrumentation. doing well - cont incentive spirometer - tylenol for pain control - leave dressing on neck until she follows with Dr. Resendez in 1 week 2- Angioedema. likely due to losartan. improved. 2 lesions on back or her R upper arm look like bug bite not hives - patient instructed never to use any llisinopril or losartan or any of meds in their family - cont norvasc for HTN - cont prednisone( taper) , H1, and H2 blockers for total of 1 week. 3- DM : cont metformin dc home
== END 2018-10-12 12:10 | disposition home or self-care (01) | DRG 471 ==
LOC: JSAMEDAYSX 10:38 → JICU 17:51 → J8W 10-10 17:14
PROVIDERS: ADMIT Orthopaedic Surgery Adult Reconstructive Orthopaedic Surgery; ATTEND Internal Medicine
PROC: 0RT30ZZ Resection of Cervical Vertebral Disc, Open Approach (ICD-10-PCS; 2018-10-08)
PROC: B01BZZZ Fluoroscopy of Spinal Cord (ICD-10-PCS; 2018-10-08)
PROC: 4A1004G Monitoring of Central Nervous Electrical Activity, Intraoperative, Open Approach (ICD-10-PCS; 2018-10-08)
PROC: 0RG10K0 Fusion of Cervical Vertebral Joint with Nonautologous Tissue Substitute, Anterior Approach, Anterior Column, Open Approach (ICD-10-PCS; principal; 2018-10-08 12:00)
DX: M50.022 Cervical disc disorder at C5-C6 level with myelopathy (principal); J18.9 Pneumonia, unspecified organism; M50.13 Cervical disc disorder with radiculopathy, cervicothoracic region; M48.02 Spinal stenosis, cervical region; M40.202 Unspecified kyphosis, cervical region; E78.5 Hyperlipidemia, unspecified; I10 Essential (primary) hypertension; E11.9 Type 2 diabetes mellitus without complications; Z79.84 Long term (current) use of oral hypoglycemic drugs; L29.9 Pruritus, unspecified; R13.10 Dysphagia, unspecified; E66.9 Obesity, unspecified; Z68.26 Body mass index [BMI] 26.0-26.9, adult; T78.3XXA Angioneurotic edema, initial encounter; T46.5X5A Adverse effect of other antihypertensive drugs, initial encounter; Y92.230 Patient room in hospital as the place of occurrence of the external cause
CPT/HCPCS: 36415; 76000-TC-FY; 80048; 80053; 82962; 83735; 84100; 84703; 85025; 85027; 86850; 86900; 86901; 88304-TC; 94760; 97116-GP; 97161-GP; J0131

== ENCOUNTER 2018-10-14 17:25 | Emergency (ER) | payer OTHER ==
[2018-10-14 17:37] VITALS: BMI 25.7
--- NOTE | 2018-10-14 19:14 | PDOC ---
History of Present Illness - General Chief Complaint: Pain Stated Complaint: POST OP PAIN ON NECK Time Seen by Provider: 10/14/18 19:14 - History of Present Illness Initial Comments: 10/14/18 19:14 Ms. Quiroz is a 52 yo female w/ pmh of HTN, HLD, DM, cervical myelopathy with neurogenic claudication, with recent (10/08/18) C5-C6 discectomy, C5, C6 partial corpectomies, C5-C6 anterior arthrodesis, C5-C6 anterior instrumentation, Bone autograft, and Bone allograft who presents for evaluation of The patient denies chest pain, shortness of breath, headache and dizziness. Denies fever, chills, nausea, vomit, diarrhea and constipation. Denies dysuria, frequency, urgency and hematuria. Past History - Past Medical History Allergies/Adverse Reactions: Allergies Allergy/AdvReac Type Severity Reaction Status Date / Time lisinopril Allergy Severe Swelling Verified 10/14/18 17:37 losartan Allergy Verified 10/14/18 17:37 Home Medications: Ambulatory Orders Atorvastatin Ca [Lipitor] 20 mg PO DAILY 10/04/18 metFORMIN HCL [Metformin ER Osmotic] 500 mg PO BID 10/04/18 Acetaminophen [Tylenol .Regular Strength -] 650 mg PO Q6H PRN #15 tablet Amlodipine Besylate [Norvasc -] 5 mg PO DAILY #30 tablet 10/11/18 Diphenhydramine HCl [Benadryl Capsule -] 50 mg PO Q8H #15 capsule 10/11/18 Prednisone See Taper PO DAILY #12 tablet 10/11/18 Ranitidine [Zantac -] 150 mg PO BID #10 tablet 10/11/18 Anemia: No Asthma: No Cancer: No Cardiac Disorders: No CVA: No COPD: No CHF: No Dementia: No Diabetes: Yes GI Disorders: Yes (ACID REFLUX) Disorders: No HTN: Yes Hypercholesterolemia: Yes Liver Disease: No Seizures: No Thyroid Disease: No - Surgical History Abdominal Surgery: Yes Appendectomy: Yes Cardiac Surgery: No Cholecystectomy: No Lung Surgery: No Neurologic Surgery: No Orthopedic Surgery: Yes (LEFT TOTAL HIP REPLACEMENT) - Suicide/Smoking/Psychosocial Hx Smoking History: Never smoked Hx Alcohol Use: No Drug/Substance Use Hx: No Substance Use Type: None Hx Substance Use Treatment: No Review of Systems - Review of Systems Comments:: 10/14/18 19:14 GENERAL/CONSTITUTIONAL: No fever or chills. No weakness. HEAD, EYES, EARS, NOSE AND THROAT: No change in vision. No ear pain or discharge. No sore throat. CARDIOVASCULAR: No chest pain or shortness of breath RESPIRATORY: No cough, wheezing, or hemoptysis. GASTROINTESTINAL: No nausea, vomiting, diarrhea or constipation. GENITOURINARY: No dysuria, frequency, or change in urination. MUSCULOSKELETAL: No joint or muscle swelling or pain. No neck or back pain. SKIN: No rash NEUROLOGIC: No headache, vertigo, loss of consciousness, or change in strength/ sensation. ENDOCRINE: No increased thirst. No abnormal weight change HEMATOLOGIC/LYMPHATIC: No anemia, easy bleeding, or history of blood clots. ALLERGIC/IMMUNOLOGIC: No hives or skin allergy. *Physical Exam - Vital Signs Last Vital Signs Temp Pulse Resp BP Pulse Ox 97.6 F 85 18 138/83 100 10/14/18 17:35 10/14/18 17:35 10/14/18 17:35 10/14/18 17:35 10/14/18 17:35 - Physical Exam Comments: 10/14/18 19:14 GENERAL: Awake, alert, and fully oriented, in no acute distress HEAD: No signs of trauma, normocephalic, atraumatic EYES: PERRLA, EOMI, sclera anicteric, conjunctiva clear ENT: Auricles normal inspection, hearing grossly normal, nares patent, oropharynx clear without exudates. Moist mucosa NECK: Normal ROM, supple, no lymphadenopathy, JVD, or masses LUNGS: No distress, speaks full sentences, clear to auscultation bilaterally HEART: Regular rate and rhythm, normal S1 and S2, no murmurs, rubs or gallops, peripheral pulses normal and equal bilaterally. ABDOMEN: Soft, nontender, normoactive bowel sounds. No guarding, no rebound. No masses EXTREMITIES: Normal inspection, Normal range of motion, no edema. No clubbing or cyanosis. NEUROLOGICAL: Cranial nerves II through XII grossly intact. Normal speech, normal gait, no focal sensorimotor deficits SKIN: Warm, Dry, normal turgor, no rashes or lesions noted. Moderate Sedation - Procedure Monitoring Vital Signs: Procedure Monitoring Vital Signs Temperature 97.6 F 10/14/18 17:35 Pulse Rate 85 10/14/18 17:35 Respiratory Rate 18 10/14/18 17:35 Blood Pressure 138/83 10/14/18 17:35 O2 Sat by Pulse Oximetry (%) 100 10/14/18 17:35 *DC/Admit/Observation/Transfer - Referrals Referrals: Thomas Dumont MD [Primary Care Provider] - - Patient Instructions - Post Discharge Activity
[2018-10-14] MEDS ORDERED: LIDOCAINE 5% TOPICAL PATCH TP ONE (19:35)
--- NOTE | 2018-10-14 19:35 | PDOC ---
History of Present Illness - General History Source: Patient Exam Limitations: No Limitations - History of Present Illness Initial Comments: 10/14/18 20:26 The patient is a 52 year old female with PMH of HTN, HLD, DM, cervical myelopathy with neurogenic claudication, with recent (10/08/18) C5-C6 discectomy, C5, C6 partial corpectomies, C5-C6 anterior arthrodesis, C5-C6 anterior instrumentation, Bone autograft, and Bone allograft who presents for evaluation of left upper back pain since yesterday evening. Patient was discharged on Monday after a recent surgery, for which she was given a cream to rub on to the area. She states the pain is different from the pain she felt immediately after the surgery. Patient took Tylenol and tramadol at home with no relief. Patient states the left upper back pain also radiates to the left arm with associated tingling and numbness. Patient is also complaining of lightheadedness and diaphoresis, but denies any redness or swelling to the area. The patient denies chest pain, shortness of breath, headache and dizziness. Denies fever, chills, nausea, vomit, diarrhea and constipation. Denies dysuria, frequency, urgency and hematuria. Allergies: NKA Past surgical history: see HPI Social history: No reported alcohol, drug or cigarette use. PCP: lisinopril, losartan c <Analisa Rizo - Last Filed: 10/14/18 20:37> <Carmelita Blandon - Last Filed: 10/14/18 21:12> - General Chief Complaint: Pain Stated Complaint: POST OP PAIN ON NECK Time Seen by Provider: 10/14/18 19:14 Past History <Analisa Rizo - Last Filed: 10/14/18 20:37> - Past Medical History Anemia: No Asthma: No Cancer: No Cardiac Disorders: No CVA: No COPD: No CHF: No Dementia: No Diabetes: Yes GI Disorders: Yes (ACID REFLUX) Disorders: No HTN: Yes Hypercholesterolemia: Yes Liver Disease: No Seizures: No Thyroid Disease: No - Surgical History Abdominal Surgery: Yes Appendectomy: Yes Cardiac Surgery: No Cholecystectomy: No Lung Surgery: No Neurologic Surgery: No Orthopedic Surgery: Yes (LEFT TOTAL HIP REPLACEMENT) - Suicide/Smoking/Psychosocial Hx Smoking History: Never smoked Hx Alcohol Use: No Drug/Substance Use Hx: No Substance Use Type: None Hx Substance Use Treatment: No <Carmelita Blandon - Last Filed: 10/14/18 21:12> - Past Medical History Allergies/Adverse Reactions: Allergies Allergy/AdvReac Type Severity Reaction Status Date / Time lisinopril Allergy Severe Swelling Verified 10/14/18 17:37 losartan Allergy Verified 10/14/18 17:37 Home Medications: Ambulatory Orders Atorvastatin Ca [Lipitor] 20 mg PO DAILY 10/04/18 metFORMIN HCL [Metformin ER Osmotic] 500 mg PO BID 10/04/18 Acetaminophen [Tylenol .Regular Strength -] 650 mg PO Q6H PRN #15 tablet Amlodipine Besylate [Norvasc -] 5 mg PO DAILY #30 tablet 10/11/18 Diphenhydramine HCl [Benadryl Capsule -] 50 mg PO Q8H #15 capsule 10/11/18 Prednisone See Taper PO DAILY #12 tablet 10/11/18 Ranitidine [Zantac -] 150 mg PO BID #10 tablet 10/11/18 Methocarbamol [Robaxin -] 500 mg PO TID #21 tablet 10/14/18 Review of Systems - Review of Systems Able to Perform ROS?: Yes Comments:: 10/14/18 20:35 ADULT ROS GENERAL/CONSTITUTIONAL: No fever or chills. No weakness. HEAD, EYES, EARS, NOSE AND THROAT: No change in vision. No ear pain or discharge. No sore throat. CARDIOVASCULAR: No chest pain or shortness of breath. RESPIRATORY: No cough, wheezing, or hemoptysis. GASTROINTESTINAL: No nausea, vomiting, diarrhea or constipation. GENITOURINARY: No dysuria, frequency, or change in urination. MUSCULOSKELETAL: No joint or muscle swelling or pain. No neck pain. (+) Left upper back pain. SKIN: No rash NEUROLOGIC: No headache, vertigo, loss of consciousness, or change in strength/ sensation. ENDOCRINE: No increased thirst. No abnormal weight change. HEMATOLOGIC/LYMPHATIC: No anemia, easy bleeding, or history of blood clots. ALLERGIC/IMMUNOLOGIC: No hives or skin allergy. <Analisa Rizo - Last Filed: 10/14/18 20:37> *Physical Exam - Vital Signs Last Vital Signs Temp Pulse Resp BP Pulse Ox 97.6 F 85 18 138/83 100 10/14/18 17:35 10/14/18 17:35 10/14/18 17:35 10/14/18 17:35 10/14/18 17:35 - Physical Exam Comments: 10/14/18 20:35 ADULT EXAM GENERAL: Awake, alert, and fully oriented, in no acute distress HEAD: No signs of trauma EYES: PERRLA, EOMI, sclera anicteric, conjunctiva clear ENT: Auricles normal inspection, hearing grossly normal, nares patent, oropharynx clear without exudates. Moist mucosa NECK: Normal ROM, supple, no lymphadenopathy, JVD, or masses LUNGS: Breath sounds equal, clear to auscultation bilaterally. No wheezes, and no crackles HEART: Regular rate and rhythm, normal S1 and S2, no murmurs, rubs or gallops ABDOMEN: Soft, nontender, normoactive bowel sounds. No guarding, no rebound. No masses BACK: (+) Trapezium spasm on the left shoulder radiating down the left arm. EXTREMITIES: Normal range of motion, no edema. No clubbing or cyanosis. No cords, erythema, or tenderness NEUROLOGICAL: Cranial nerves II through XII grossly intact. Normal speech, normal gait SKIN: Warm, Dry, normal turgor, no rashes or lesions noted. <Analisa Rizo - Last Filed: 10/14/18 20:37> - Vital Signs Last Vital Signs Temp Pulse Resp BP Pulse Ox 97.6 F 85 18 138/83 100 10/14/18 17:35 10/14/18 17:35 10/14/18 17:35 10/14/18 17:35 10/14/18 17:35 <Carmelita Blandon - Last Filed: 10/14/18 21:12> Moderate Sedation - Procedure Monitoring Vital Signs: Procedure Monitoring Vital Signs Temperature 97.6 F 10/14/18 17:35 Pulse Rate 85 10/14/18 17:35 Respiratory Rate 18 10/14/18 17:35 Blood Pressure 138/83 10/14/18 17:35 O2 Sat by Pulse Oximetry (%) 100 10/14/18 17:35 <Analisa Rizo - Last Filed: 10/14/18 20:37> - Procedure Monitoring Vital Signs: Procedure Monitoring Vital Signs Temperature 97.6 F 10/14/18 17:35 Pulse Rate 85 10/14/18 17:35 Respiratory Rate 18 10/14/18 17:35 Blood Pressure 138/83 10/14/18 17:35 O2 Sat by Pulse Oximetry (%) 100 10/14/18 17:35 <Carmelita Blandon - Last Filed: 10/14/18 21:12> ED Treatment Course - Medications Given in the ED: ED Medications Discontinued Medications Generic Name Dose Route Start Last Admin Trade Name Pretty PRN Reason Stop Dose Admin Aspirin 650 mg 10/14/18 19:38 10/14/18 20:01 Ecotrin - PO 10/14/18 19:39 Not Given ONCE ONE Lidocaine 1 patch 10/14/18 19:35 10/14/18 20:01 Lidoderm Patch - TP 10/14/18 19:36 1 patch ONCE ONE Administration Oxycodone/Acetaminophen 2 combo 10/14/18 19:52 10/14/18 20:01 Percocet 5/325 - PO 10/14/18 19:53 2 combo ONCE ONE Administration <Analisa Rizo - Last Filed: 10/14/18 20:37> Medical Decision Making - Medical Decision Making 10/14/18 20:00 52F who had a spine operation on Oct: C5-C6 discectomy; C5, C6 partial corpectomies; C5-C6 anterior cervical decompression and instrumented fusion. 10/14/18 21:04 Pt's exam is consistent with musle spasm of the trapezius. She has pain in the entire left arm going down to the wrist, but not including the hand. Pt has FROM of the shoulder and the elbow and she has good pulses and no swelling. She has no anterior neck pain at the site of her surgery, and she has no C5 C6 pain in the distribution. Pt is afebrile. EKG is NSR; trapezius pain to the left arm started last night. One normal cardiac enzyme. We called/paged her surgeon: Dr Resendez to speak to him, no response. Pt will be discharged <Carmelita Blandon - Last Filed: 10/14/18 21:12> *DC/Admit/Observation/Transfer - Attestations Scribe Attestion: 10/14/18 20:37 Documentation prepared by Analisa Rizo, acting as medical illustrator for Carmelita Blandon MD. <Analisa Rizo - Last Filed: 10/14/18 20:37> - Discharge Dispostion Decision to Admit order: No <Carmelita Blandon - Last Filed: 10/14/18 21:12> Diagnosis at time of Disposition: Trapezius muscle spasm - Discharge Dispostion Disposition: HOME Condition at time of disposition: Stable - Prescriptions Prescriptions: Methocarbamol [Robaxin -] 500 mg PO TID #21 tablet - Referrals Referrals: Thomas Dumont MD [Primary Care Provider] - - Patient Instructions Printed Discharge Instructions: DI for Muscle Strain - Post Discharge Activity
[2018-10-14] MEDS ORDERED: ASPIRIN 325 MG ENTERIC COATED TABLET (FP) PO ONE (19:38)
[2018-10-14] MEDS ORDERED: ASPIRIN 325 MG TABLET ONE (19:46)
[2018-10-14] MEDS ORDERED: LIDOCAINE 5% TOPICAL PATCH ONE (19:46)
[2018-10-14] MEDS ORDERED: METHOCARBAMOL 500 MG TABLET PO ONE (20:30)
[2018-10-14] MEDS ORDERED: METHOCARBAMOL 500 MG TABLET ONE (20:34)
[2018-10-14 21:19] VITALS: BP 128/74; PULSE 89; TEMP 98.5
[2018-10-14] MEDS ORDERED: LIDOCAINE PATCH REMOVAL MC SCH (22:00)
--- NOTE | 2018-10-15 09:50 | EKG ---
Test Reason : Blood Pressure : / mmHG Vent. Rate : 080 BPM Atrial Rate : 080 BPM P-R Int : 126 ms QRS Dur : 070 ms QT Int : 376 ms P-R-T Axes : 060 043 020 degrees QTc Int : 433 ms NORMAL SINUS RHYTHM NORMAL ECG NO PREVIOUS ECGS AVAILABLE Confirmed by HUSAM UMANZOR MD ([id number]) on 10/15/2018 9:50:09 AM Referred By: Confirmed By:HUSAM UMANZOR MD
== END 2018-10-14 21:20 | disposition home or self-care (01) ==
LOC: JER 17:25
DX: M62.838 Other muscle spasm (principal); Z98.890 Other specified postprocedural states; I10 Essential (primary) hypertension; E11.9 Type 2 diabetes mellitus without complications; Z79.84 Long term (current) use of oral hypoglycemic drugs; E78.5 Hyperlipidemia, unspecified; K21.9 Gastro-esophageal reflux disease without esophagitis; Z96.642 Presence of left artificial hip joint
CPT/HCPCS: 36415; 82550; 84484; 93005; 93010; 99281-25